=== PATIENT | male | born 1985 | race Caucasian/White ===

== ENCOUNTER 2020-04-21 17:56 | Inpatient (IN) | payer OTHER ==
--- OUTSIDE RECORDS SUMMARY | 2020-04-21 18:03 | XMS ---
:1985 [facility] Providers Name Role Phone ED STAFF PHYSICIAN, STAFF Unavailable Unavailable SHAHAB MARTEL Unavailable Unavailable DAVID PUTNAM Unavailable Unavailable Re-disclosure Warning The records that you are about to access may contain information from federally- assisted alcohol or drug abuse programs. If such information is present, then the following federally mandated warning applies: This information has been disclosed to you from records protected by federal confidentiality rules (42 CFR part 2). The federal rules prohibit you from making any further disclosure of this information unless further disclosure is expressly permitted by the written consent of the person to whom it pertains or as otherwise permitted by 42 CFR part 2. A general authorization for the release of medical or other information is NOT sufficient for this purpose. The Federal rules restrict any use of the information to criminally investigate or prosecute any alcohol or drug abuse patient.The records that you are about to access may contain highly sensitive health information, the redisclosure of which is protected by Article 27-F of the [facility] Public Health law. If you continue you may haveaccess to information: Regarding HIV / AIDS; Provided by facilities licensed or operated by the [facility] Office of Mental Health; or Provided by the [facility] Office for People With Developmental Disabilities. If such information is present, then the following [facility] mandated warning applies: This information has been disclosed to you from confidential records which are protected by state law. State law prohibits you from making any further disclosure of this information without the specific written consent of the person to whom it pertains, or as otherwise permitted by law. Any unauthorized further disclosure in violation of state law may result in a fine or half-way sentence or both. A general authorization for the release of medical or other information is NOT sufficient authorization for further disclosure. Encounters Encounter Providers Location Date Indications Data Source(s ) Inpatient Attender: DAVID [id number] 02/10/2020 [facility] HER[facility]NDEZ 06:49:00 PM EDT [facility] RAttender: STAFF ED - 02/13/2020 STAFF 12:55:00 PM EDT PHYSICIANAdmitter: DAVID HERNANDEZ RReferrer: DAVDI HERNANDEZ R Patient discharged. Emergency Attender: DAVID HERNANDEZ H 01/11/2020 03:43:0 0 PM [facility] STAFF EDT - 01/13/2020 [facility] PHYSICIANAdmitter: STAFF ED 05:58:00 PM EDT STAFF PHYSICIAN Patient discharged. Emergency Attender: DELONTE, 10/04/2018 REFER BY [facility] EDWARDAdmitter: DELONTE, 04:12:00 PM EDT [facility] REFER BY DOCTOR Insurance Providers Payer name Policy type Policy ID Covered Covered libertarian's Policy P kj / Coverage libertarian ID relationship to [employer] Inf ormation type urrutia SELF PAY SP INSURANCE O Problems, Conditions, and Diagnoses Code Display Name Description Problem Type Effective Data Sour ce(s) Dates F13.10 Sedative, hypnotic SEDATIVE, HYPNOTIC Diagnosis 0 [place] or anxiolytic OR ANXIOLYTIC 12:55:00 PM Medical Center abuse, ABUSE, EDT uncomplicated UNCOMPLICATED F41.9 Anxiety disorder, ANXIETY DISORDER, Diagnosis 02/13/2020 [facility] unspecified UNSPECIFIED 12:55:[address] [facility] [address] EDT F11.10 Opioid abuse, OPIOID ABUSE, Diagnosis 02/10/2020 [facility] uncomplicated UNCOMPLICATED 06:49:00 PM [facility] EDT 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 01/11/2020 [facility] [conscious (CONSCIOUS 03:43:00 PM Medical Cente r simulation] SIMULATION) EDT Results ID Date Data Source CHMROUTINECCDA.[id number] 02/13/2020 05:40:00 AM EDT [facility] -0400 Name Value Range Interpretation Description Data Sup porting Code Source(s) Document(s ) Magnesium 1.6-2.3 <content [facility] [Mass/volume] styleCode="Tracey Naomi in Serum or d">Magnesium Medical Plasma </content>2.0 Center MG/DL<content styleCode="Clementine lics"> (1.6-2.3 MG/DL)</conten t> ID Date Data Source CHMROUTINECCDA.[id number] 02/12/2020 08:53:00 PM EDT [facility] -0400 Name Value Range Interpretation Description Data Sup porting Code Source(s) Document(s ) Cannabinoids <content [facility] [Presence] in styleCode="Tracey Salgado Urine by Screen d">Cannabinoid Medical method >50 ng/mL s Center </content>NEGA TIVE NG/ML (Reference Range: not available)<br/ > ID Date Data Source [id number] 02/11/2020 12:00:00 AM EDT [facility] Name Value Range Interpretation Code Description Data Francine rce(s) Supporting Document(s ) 2019-nCoV [facility] RNA XXX BIENVENIDO+probe- Imp This lab was ordered by [facility] and reported by [facility]. ID Date Data Source Liver 01/12/2020 05:26:[address] [facility] Profile.[id number] Name Value Range Interpretation Description Data Sup porting Code Source(s) Document(s ) Alanine 7-50 <content [facility] aminotransferase styleCode="Bold"> Jermain hs [Enzymatic Alanine Medical activity/volume] Aminotransferase Center in Serum or Plasma (ALT) </content>8 IU/L<content styleCode="Italic s"> (7-50 IU/L)</content> Bilirubin.total 0.2-1.3 <content [facility] [Mass/volume] in styleCode="Bold"> Jermain hs Serum or Plasma Bilirubin Total Medical </content>0.3 Center MG/DL<content styleCode="Italic s"> (0.2-1.3 MG/DL)</content> Aspartate 17-59 <content [facility] aminotransferase styleCode="Bold"> Jermain hs [Enzymatic Aspartate Medical activity/volume] Aminotransferase Center in Serum or Plasma (AST) </content>19 IU/L<content styleCode="Italic s"> (17-59 IU/L)</content> Alkaline 38-126 <content [facility] phosphatase styleCode="Bold"> Noami [Enzymatic Alkaline Medical activity/volume] Phosphatase (ALP) Cente r in Serum or Plasma </content>79 IU/L<content styleCode="Italic s"> (38-126 IU/L)</content> Albumin 3.5-5.0 <content [facility] [Mass/volume] in styleCode="Bold"> Jermain hs Serum or Plasma Albumin Medical </content>3.8 Center G/DL<content styleCode="Italic s"> (3.5-5.0 G/DL)</content> ID Date Data Source HematologyRou.[id number] 01/12/2020 05:26:00 AM EDT [facility] 0400 Name Value Range Interpretation Description Data Sup porting Code Source(s) Document(s ) Leukocytes 4.4-11.0 <content [facility] [#/volume] in styleCode="Bold Naomi Blood by ">White Blood Medical Automated count Cell Count Center </content>5.48 KCUMM<content styleCode="Ital ics"> (4.4-11.0 KCUMM)</content > Hemoglobin 13.5-17. Below low normal <content [facility] [Mass/volume] in 5 styleCode="Bold Naomi Blood ">Hemoglobin Medical </content>12.1 Center G/DL L<content styleCode="Ital ics"> (13.5-17.5 G/DL)</content> Erythrocytes 4.4-5.9 Below low normal <content [facility] [#/volume] in styleCode="Bold Naomi Blood by ">Red Blood Medical Automated count Cell Count Center </content>4.22 MCUMM L<content styleCode="Ital ics"> (4.4-5.9 MCUMM)</content > Erythrocyte mean 80.0-100 <content [facility] corpuscular .0 styleCode="Bold Naomi volume [Entitic ">Mean Medical volume] by Corpuscular Center Automated count Volume </content>86.3 FL<content styleCode="Ital ics"> (80.0-100.0 FL)</content> Hematocrit 41.0-53. Below low normal <content [facility] [Volume 0 styleCode="Bold Naomi Fraction] of ">Hematocrit Medical Blood by </content>36.4 Center Automated count % L<content styleCode="Ital ics"> (41.0-53.0 %)</content> Erythrocyte 11.5-14. <content [facility] distribution 5 styleCode="Bold Naomi width [Ratio] by ">Red Cell Medical Automated count Distribution Center Width </content>13.7 %<content styleCode="Ital ics"> (11.5-14.5 %)</content> Erythrocyte mean 32.0-37. <content [facility] corpuscular 0 styleCode="Bold Naomi hemoglobin ">Mean Corpus. Medical concentration Hgb Center [Mass/volume] by Concentration Automated count (MCHC) </content>33.2 G/DL<content styleCode="Ital ics"> (32.0-37.0 G/DL)</content> Erythrocyte mean 26.0-34. <content [facility] corpuscular 0 styleCode="Bold Naomi hemoglobin ">Mean Medical [Entitic mass] Corposcular Center by Automated Hemoglobin count </content>28.7 PG<content styleCode="Ital ics"> (26.0-34.0 PG)</content> UNK 0.0 <content Saint styleCode="Bold Naomi ">Nucleated Red Medical Blood Cell Center Count </content>0.00 KCUMM<content styleCode="Ital ics"> (0.0 KCUMM)</content > Platelets 130-400 <content Saint [#/volume] in styleCode="Bold Naomi Blood by ">Platelet Medical Automated count Count Center </content>169 KCUMM<content styleCode="Ital ics"> (130-400 KCUMM)</content > Platelet mean 8.0-11.0 <content Saint volume [Entitic styleCode="Bold Naomi volume] in Blood ">Mean Platelet Medical by Automated Volume Center count </content>10.8 FL<content styleCode="Ital ics"> (8.0-11.0 FL)</content> UNK 0 <content Saint styleCode="Bold Naomi ">Nucleated Red Medical Blood Cell Center </content>0.0 /100<content styleCode="Ital ics"> (0 /100)</content> ID Date Data Source GFR(Creatinine).[id number] 01/12/2020 05:26:00 AM EDT [facility] 0-0400 Name Value Range Interpretation Code Description Data Francine rce(s) Supporting Document(s ) UNK > 60 <content [facility] styleCode="Bold"> Medical Cent er EGFR </content>118 GFR<content styleCode="Italic s"> (> 60 GFR)</content> ID Date Data Source CHELADA.[id number] 01/12/2020 05:26:00 AM EDT [facility] -0400 Name Value Range Interpretation Description Data Sup porting Code Source(s) Document(s ) UNK >= 1.0 <content [facility] styleCode="Tracey Naomi d">AG Ratio Medical </content>1.4 Center <content styleCode="Clementine lics"> (>= 1.0 )</content> Phosphate 2.5-4.5 <content [facility] [Mass/volume] styleCode="Tracey Naomi in Serum or d">Phosphorus Medical Plasma </content>4.3 Center MG/DL<content styleCode="Clementine lics"> (2.5-4.5 MG/DL)</conten t> UNK 2.3-3.5 <content [facility] styleCode="Tracey Naomi d">Globulin Medical </content>2.7 Center G/DL<content styleCode="Clementine lics"> (2.3-3.5 G/DL)</content > Magnesium 1.6-2.3 <content [facility] [Mass/volume] styleCode="Tracey Naomi in Serum or d">Magnesium Medical Plasma </content>2.0 Center MG/DL<content styleCode="Clementine lics"> (1.6-2.3 MG/DL)</conten t> Protein 6.3-8.2 <content [facility] [Mass/volume] styleCode="Tracey Naomi in Serum or d">Total Medical Plasma Protein Center </content>6.5 G/DL<content styleCode="Clementine lics"> (6.3-8.2 G/DL)</content > ID Date Data Source [facility].[id number] 01/12/2020 05:26:00 AM EDT [facility] Name Value Range Interpretation Description Data Sup porting Code Source(s) Document(s ) Sodium 137-145 <content Saint [Moles/volume] in styleCode="Bold"> [facility] Serum or Plasma Sodium Medical </content>138 Center MEQ/L<content styleCode="Italic s"> (137-145 MEQ/L)</content> Potassium 3.5-5.3 <content [facility] [Moles/volume] in styleCode="Bold"> [facility] Serum or Plasma Potassium Medical </content>3.5 Center MEQ/L<content styleCode="Italic s"> (3.5-5.3 MEQ/L)</content> UNK 9-20 <content Saint styleCode="Bold"> Naomi BUN </content>15 Medical MG/DL<content Center styleCode="Italic s"> (9-20 MG/DL)</content> Chloride 98-107 <content [facility] [Moles/volume] in styleCode="Bold"> [facility] Serum or Plasma Chloride Medical </content>105 Center MEQ/L<content styleCode="Italic s"> (98-107 MEQ/L)</content> Carbon dioxide, 22-30 <content [facility] total styleCode="Bold"> Naomi [Moles/volume] in Carbon Dioxide Medical Serum or Plasma </content>27 Center MEQ/L<content styleCode="Italic s"> (22-30 MEQ/L)</content> Glucose 74-106 <content [facility] [Mass/volume] in styleCode="Bold"> Jermain hs Serum or Plasma Glucose Medical </content>105 Center MG/DL<content styleCode="Italic s"> (74-106 MG/DL)</content> Calcium 8.4-10. <content [facility] [Mass/volume] in 2 styleCode="Bold"> Jermain hs Serum or Plasma Calcium Medical </content>9.5 Center MG/DL<content styleCode="Italic s"> (8.4-10.2 MG/DL)</content> Creatinine 0.5-1.3 <content [facility] [Mass/volume] in styleCode="Bold"> Jermain hs Serum or Plasma Creatinine Medical </content>0.8 Center MG/DL<content styleCode="Italic s"> (0.5-1.3 MG/DL)</content> UNK > 60 <content [facility] styleCode="Bold"> Naomi EGFR Medical </content>118 Center GFR<content styleCode="Italic s"> (> 60 GFR)</content> Alkaline 38-126 <content [facility] phosphatase styleCode="Bold"> Naomi [Enzymatic Alkaline Medical activity/volume] Phosphatase (ALP) Cente r in Serum or Plasma </content>79 IU/L<content styleCode="Italic s"> (38-126 IU/L)</content> Alanine 7-50 <content [facility] aminotransferase styleCode="Bold"> Jermain hs [Enzymatic Alanine Medical activity/volume] Aminotransferase Center in Serum or Plasma (ALT) </content>8 IU/L<content styleCode="Italic s"> (7-50 IU/L)</content> Aspartate 17-59 <content [facility] aminotransferase styleCode="Bold"> Jermain hs [Enzymatic Aspartate Medical activity/volume] Aminotransferase Center in Serum or Plasma (AST) </content>19 IU/L<content styleCode="Italic s"> (17-59 IU/L)</content> Albumin 3.5-5.0 <content [facility] [Mass/volume] in styleCode="Bold"> Jermain hs Serum or Plasma Albumin Medical </content>3.8 Center G/DL<content styleCode="Italic s"> (3.5-5.0 G/DL)</content> Bilirubin.total 0.2-1.3 <content [facility] [Mass/volume] in styleCode="Bold"> Jermain hs Serum or Plasma Bilirubin Total Medical </content>0.3 Center MG/DL<content styleCode="Italic s"> (0.2-1.3 MG/DL)</content> ID Date Data Source [id number] 01/11/2020 06:45:00 PM EDT [facility] Name Value Range Interpretation Code Description Data Francine rce(s) Supporting Document(s ) COV2 [facility] This lab was ordered by [facility] and reported by [facility]. ID Date Data Source Urinalysis.[id number] 01/11/2020 04:45:00 PM EDT [facility] 0 Name Value Range Interpretation Description Data Sup porting Code Source(s) Document(s ) Color of Urine YELLOW <content Saint styleCode="Tracey Naomi d">Color, Medical Urine Center </content>YELL OW <content styleCode="Clementine lics"> (YELLOW )</content> Ketones NEGATIVE <content [facility] [Mass/volume] styleCode="Tracey Irahetas in Urine by d">Urine Medical Test strip Ketone Center </content>NEGA TIVE MG/DL<content styleCode="Clementine lics"> (NEGATIVE MG/DL)</conten t> Glucose NEGATIVE <content [facility] [Mass/volume] styleCode="Tracey Irahetas in Urine by d">Urine Medical Test strip Glucose Center </content>NEGA TIVE MG/DL<content styleCode="Clementine lics"> (NEGATIVE MG/DL)</conten t> UNK NEGATIVE <content Saint styleCode="Tracey Naomi d">Urine Medical Bilirubin Center </content>NEGA TIVE <content styleCode="Clementine lics"> (NEGATIVE )</content> UNK CLEAR <content Saint styleCode="Tracey Naomi d">Urine Medical Clarity Center </content>JUDSON R <content styleCode="Clementine lics"> (CLEAR )</content> Specific 1.015-1.02 Above high <content Saint gravity of 5 normal styleCode="Tracey Irahetas Urine by Test d">Urine Medical strip Specific Center [place] </content>>= 1.030 H<content styleCode="Clementine lics"> (1.015-1.025 )</content> Hemoglobin NEGATIVE <content [facility] [Presence] in styleCode="Tracey Salgado Urine by Test d">Urine Blood Medical strip </content>NEGA Center TIVE <content styleCode="Clementine lics"> (NEGATIVE )</content> pH of Urine by 4.5-8.0 <content Saint Test strip styleCode="Tracey Irahetas d">Urine pH Medical </content>5.5 Center <content styleCode="Clementine lics"> (4.5-8.0 )</content> Nitrite NEGATIVE <content [facility] [Presence] in styleCode="Tracey Irahetas Urine by Test d">Urine Medical strip Nitrite Center </content>NEGA TIVE <content styleCode="Clementine lics"> (NEGATIVE )</content> Leukocyte NEGATIVE <content Saint esterase styleCode="Tracey Naomi [Presence] in d">Urine Medical Urine by Test Leukocyte Center strip </content>NEGA TIVE <content styleCode="Clementine lics"> (NEGATIVE )</content> Urobilinogen 0.2-1.0 <content Saint [Units/volume] styleCode="Tracey Irahetas in Urine by d">Urine Medical Test strip Urobilinogen Center </content>0.2 MG/DL<content styleCode="Clementine lics"> (0.2-1.0 MG/DL)</conten t> Protein NEGATIVE <content [facility] [Mass/volume] styleCode="Tracey Irahetas in Urine by d">Urine Medical Test strip Protein Center </content>NEGA TIVE MG/DL<content styleCode="Clementine lics"> (NEGATIVE MG/DL)</conten t> ID Date Data Source CHMROUTINECCDA.[id number] 01/11/2020 04:45:00 PM EDT [facility] -0400 Name Value Range Interpretation Description Data Sup porting Code Source(s) Document(s ) Cannabinoids <content [facility] [Presence] in styleCode="Tracey Salgado Urine by Screen d">Cannabinoid Medical method >50 ng/mL s Center </content>PRES UMPTIVE POSITIVE NG/ML (Reference Range: not available)<br/ > ID Date Data Source Liver 01/11/2020 04:44:[address] [facility] Profile.[id number] Name Value Range Interpretation Description Data Sup porting Code Source(s) Document(s ) Aspartate 17-59 <content [facility] aminotransferase styleCode="Bold"> Jermain hs [Enzymatic Aspartate Medical activity/volume] Aminotransferase Center in Serum or Plasma (AST) </content>20 IU/L<content styleCode="Italic s"> (17-59 IU/L)</content> Alanine 7-50 <content [facility] aminotransferase styleCode="Bold"> Jermain hs [Enzymatic Alanine Medical activity/volume] Aminotransferase Center in Serum or Plasma (ALT) </content>9 IU/L<content styleCode="Italic s"> (7-50 IU/L)</content> UNK 0.0-0.3 <content Saint styleCode="Bold"> Naomi Bilirubin, Direct Medical </content>< 0.2 Center MG/DL<content styleCode="Italic s"> (0.0-0.3 MG/DL)</content> Bilirubin.total 0.2-1.3 <content [facility] [Mass/volume] in styleCode="Bold"> Jermain hs Serum or Plasma Bilirubin Total Medical </content>0.2 Center MG/DL<content styleCode="Italic s"> (0.2-1.3 MG/DL)</content> Alkaline 38-126 <content [facility] phosphatase styleCode="Bold"> Naomi [Enzymatic Alkaline Medical activity/volume] Phosphatase (ALP) Cente r in Serum or Plasma </content>73 IU/L<content styleCode="Italic s"> (38-126 IU/L)</content> Albumin 3.5-5.0 <content [facility] [Mass/volume] in styleCode="Bold"> Jermain hs Serum or Plasma Albumin Medical </content>4.1 Center G/DL<content styleCode="Italic s"> (3.5-5.0 G/DL)</content> ID Date Data Source HematologyRou.[id number] 01/11/2020 04:44:00 PM EDT [facility] 0400 Name Value Range Interpretation Description Data Sup porting Code Source(s) Document(s ) Erythrocytes 4.4-5.9 Below low normal <content [facility] [#/volume] in styleCode="Bold Naomi Blood by ">Red Blood Medical Automated count Cell Count Center </content>4.27 MCUMM L<content styleCode="Ital ics"> (4.4-5.9 MCUMM)</content > Leukocytes 4.4-11.0 <content [facility] [#/volume] in styleCode="Bold Naomi Blood by ">White Blood Medical Automated count Cell Count Center </content>6.11 KCUMM<content styleCode="Ital ics"> (4.4-11.0 KCUMM)</content > Erythrocyte mean 26.0-34. <content [facility] corpuscular 0 styleCode="Bold Naomi hemoglobin ">Mean Medical [Entitic mass] Corposcular Center by Automated Hemoglobin count </content>28.8 PG<content styleCode="Ital ics"> (26.0-34.0 PG)</content> Hematocrit 41.0-53. Below low normal <content [facility] [Volume 0 styleCode="Bold Naomi Fraction] of ">Hematocrit Medical Blood by </content>36.9 Center Automated count % L<content styleCode="Ital ics"> (41.0-53.0 %)</content> Erythrocyte mean 80.0-100 <content [facility] corpuscular .0 styleCode="Bold Naomi volume [Entitic ">Mean Medical volume] by Corpuscular Center Automated count Volume </content>86.4 FL<content styleCode="Ital ics"> (80.0-100.0 FL)</content> Hemoglobin 13.5-17. Below low normal <content Saint [Mass/volume] in 5 styleCode="Bold Naomi Blood ">Hemoglobin Medical </content>12.3 Center G/DL L<content styleCode="Ital ics"> (13.5-17.5 G/DL)</content> Platelets 130-400 <content Saint [#/volume] in styleCode="Bold Naomi Blood by ">Platelet Medical Automated count Count Center </content>185 KCUMM<content styleCode="Ital ics"> (130-400 KCUMM)</content > Platelet mean 8.0-11.0 <content [facility] volume [Entitic styleCode="Bold Naomi volume] in Blood ">Mean Platelet Medical by Automated Volume Center count </content>10.4 FL<content styleCode="Ital ics"> (8.0-11.0 FL)</content> Erythrocyte mean 32.0-37. <content [facility] corpuscular 0 styleCode="Bold Naomi hemoglobin ">Mean Corpus. Medical concentration Hgb Center [Mass/volume] by Concentration Automated count (MCHC) </content>33.3 G/DL<content styleCode="Ital ics"> (32.0-37.0 G/DL)</content> Erythrocyte 11.5-14. <content [facility] distribution 5 styleCode="Bold Naomi width [Ratio] by ">Red Cell Medical Automated count Distribution Center Width </content>13.9 %<content styleCode="Ital ics"> (11.5-14.5 %)</content> UNK 0 <content Saint styleCode="Bold Naomi ">Nucleated Red Medical Blood Cell Center </content>0.0 /100<content styleCode="Ital ics"> (0 /100)</content> UNK 0.0 <content Saint styleCode="Bold Naomi ">Nucleated Red Medical Blood Cell Center Count </content>0.00 KCUMM<content styleCode="Ital ics"> (0.0 KCUMM)</content > ID Date Data Source GFR(Creatinine).[id number] 01/11/2020 04:44:00 PM EDT [facility] 0-0400 Name Value Range Interpretation Code Description Data Francine rce(s) Supporting Document(s ) UNK > 60 <content Saint [facility] styleCode="Bold"> Medical Cent er EGFR </content>103 GFR<content styleCode="Italic s"> (> 60 GFR)</content> ID Date Data Source BMP.[id number] 01/11/2020 04:44:00 PM EDT [facility] Name Value Range Interpretation Description Data Sup porting Code Source(s) Document(s ) Potassium 3.5-5.3 <content Saint [Moles/volume] in styleCode="Bold"> [facility] Serum or Plasma Potassium Medical </content>4.0 Center MEQ/L<content styleCode="Italic s"> (3.5-5.3 MEQ/L)</content> Sodium 137-145 <content Saint [Moles/volume] in styleCode="Bold"> [facility] Serum or Plasma Sodium Medical </content>139 Center MEQ/L<content styleCode="Italic s"> (137-145 MEQ/L)</content> Chloride 98-107 <content Saint [Moles/volume] in styleCode="Bold"> [facility] Serum or Plasma Chloride Medical </content>103 Center MEQ/L<content styleCode="Italic s"> (98-107 MEQ/L)</content> Carbon dioxide, 22-30 <content Saint total styleCode="Bold"> Naomi [Moles/volume] in Carbon Dioxide Medical Serum or Plasma </content>28 Center MEQ/L<content styleCode="Italic s"> (22-30 MEQ/L)</content> Creatinine 0.5-1.3 <content [facility] [Mass/volume] in styleCode="Bold"> Jermain hs Serum or Plasma Creatinine Medical </content>0.9 Center MG/DL<content styleCode="Italic s"> (0.5-1.3 MG/DL)</content> UNK 9-20 <content Saint styleCode="Bold"> Naomi BUN </content>14 Medical MG/DL<content Center styleCode="Italic s"> (9-20 MG/DL)</content> UNK > 60 <content [facility] styleCode="Bold"> Naomi EGFR Medical </content>103 Center GFR<content styleCode="Italic s"> (> 60 GFR)</content> Glucose 74-106 Above high <content Saint [Mass/volume] in normal styleCode="Bold"> Jermain hs Serum or Plasma Glucose Medical </content>116 Center MG/DL H<content styleCode="Italic s"> (74-106 MG/DL)</content> Calcium 8.4-10. <content [facility] [Mass/volume] in 2 styleCode="Bold"> Jermain hs Serum or Plasma Calcium Medical </content>9.2 Center MG/DL<content styleCode="Italic s"> (8.4-10.2 MG/DL)</content> Aspartate 17-59 <content [facility] aminotransferase styleCode="Bold"> Jermain hs [Enzymatic Aspartate Medical activity/volume] Aminotransferase Center in Serum or Plasma (AST) </content>20 IU/L<content styleCode="Italic s"> (17-59 IU/L)</content> Alanine 7-50 <content [facility] aminotransferase styleCode="Bold"> Jermain hs [Enzymatic Alanine Medical activity/volume] Aminotransferase Center in Serum or Plasma (ALT) </content>9 IU/L<content styleCode="Italic s"> (7-50 IU/L)</content> Alkaline 38-126 <content Saint phosphatase styleCode="Bold"> Naomi [Enzymatic Alkaline Medical activity/volume] Phosphatase (ALP) Cente r in Serum or Plasma </content>73 IU/L<content styleCode="Italic s"> (38-126 IU/L)</content> Bilirubin.total 0.2-1.3 <content [facility] [Mass/volume] in styleCode="Bold"> Jermain hs Serum or Plasma Bilirubin Total Medical </content>0.2 Center MG/DL<content styleCode="Italic s"> (0.2-1.3 MG/DL)</content> Albumin 3.5-5.0 <content [facility] [Mass/volume] in styleCode="Bold"> Jermain hs Serum or Plasma Albumin Medical </content>4.1 Center G/DL<content styleCode="Italic s"> (3.5-5.0 G/DL)</content> Procedure Social History Code Duration Value Status Description Data Source(s ) Smoking 02/11/2020 Denies Ever completed Denies Ever Smoked [facility] 03:05:00 AM EDT Smoked Medical C enter Smoking 02/10/2020 Denies Ever completed Denies Ever Smoked [facility] 10:30:00 PM EDT Smoked Medical C enter Smoking 02/10/2020 Denies Ever completed Denies Ever Smoked [facility] 09:18:00 PM EDT Smoked Medical C enter Smoking 01/11/2020 Denies Ever completed Denies Ever Smoked [facility] 10:47:00 PM EDT Smoked Medical C enter Vital Signs ID Date Data Source UNK Name Value Range Interpretation Code Description Data Source(s) Body temperature 36.579358 36.792255 [facility] Respiratory rate 20 /min 20 /min [facility] Heart rate 58 /min 58 /min [facility] Diastolic blood 59 mm[Hg] 59 mm[Hg] [facility] Systolic blood 97 mm[Hg] 97 mm[Hg] [facility] Body temperature 36.352485 36.487100 [facility] Respiratory rate 20 /min 20 /min [facility] Heart rate 68 /min 68 /min [facility] Diastolic blood 63 mm[Hg] 63 mm[Hg] [facility] [place] Systolic blood 89 mm[Hg] 89 mm[Hg] [facility] Body temperature 36.931733 36.925679 [facility] Respiratory rate 20 /min 20 /min [facility] Heart rate 62 /min 62 /min [facility] Diastolic blood 60 mm[Hg] 60 mm[Hg] [facility] Systolic blood 100 mm[Hg] 100 mm[Hg] [facility] [place] Body temperature 36.163966 36.059905 [facility] Respiratory rate 20 /min 20 /min [facility] Heart rate 68 /min 68 /min [facility] Diastolic blood 68 mm[Hg] 68 mm[Hg] [facility] Systolic blood 103 mm[Hg] 103 mm[Hg] [facility] Body temperature 36.013379 36.003577 [facility] Respiratory rate 19 /min 19 /min [facility] Heart rate 69 /min 69 /min [facility] Diastolic blood 79 mm[Hg] 79 mm[Hg] [facility] Systolic blood 119 mm[Hg] 119 mm[Hg] [facility] Body temperature 36.349812 36.585804 [facility] Respiratory rate 20 /min 20 /min [facility] Heart rate 68 /min 68 /min [facility] Diastolic blood 64 mm[Hg] 64 mm[Hg] [facility] Systolic blood 118 mm[Hg] 118 mm[Hg] [facility] Body temperature 36.129698 36.412217 [facility] Respiratory rate 20 /min 20 /min [facility] Heart rate 64 /min 64 /min [facility] Diastolic blood 76 mm[Hg] 76 mm[Hg] [facility] Systolic blood 119 mm[Hg] 119 mm[Hg] [facility] Body weight 81.346750 kg 81.419736 kg [facility] Body height 187.282917 187.531973 cm [facility] [place] Body mass index 23.10 kg/m2 23.10 kg/m2 [facility] (BMI) [Ratio] Medical [address] Body temperature 36.147884 36.133383 [facility] Respiratory rate 18 /min 18 /min [facility] Heart rate 66 /min 66 /min [facility] Diastolic blood 83 mm[Hg] 83 mm[Hg] [facility] Systolic blood 133 mm[Hg] 133 mm[Hg] [facility] Oxygen saturation 100 % 100 % [facility] in Arterial blood [facility] by Pulse oximetry Body temperature 36.987364 36.147656 [facility] Respiratory rate 17 /min 17 /min [facility] Heart rate 73 /min 73 /min [facility] Diastolic blood 92 mm[Hg] 92 mm[Hg] [facility] Systolic blood 124 mm[Hg] 124 mm[Hg] [facility] Oxygen saturation 97 % 97 % [facility] J [facility]ph[facility] in Arterial blood [facility] by Pulse oximetry Body temperature 36.089249 36.557167 [facility] Respiratory rate 19 /min 19 /min [facility] Heart rate 92 /min 92 /min [facility] Diastolic blood 82 mm[Hg] 82 mm[Hg] [facility] pressure Medical Center Systolic blood 136 mm[Hg] 136 mm[Hg] [facility] Body temperature 36.620453 36.056177 [facility] Respiratory rate 20 /min 20 /min [facility] Heart rate 53 /min 53 /min [facility] Diastolic blood 84 mm[Hg] 84 mm[Hg] [facility] pressure [facility] Center Systolic blood 120 mm[Hg] 120 mm[Hg] [facility] Body temperature 36.651062 36.764126 [facility] Respiratory rate 20 /min 20 /min [facility] Heart rate 88 /min 88 /min [facility] Diastolic blood 65 mm[Hg] 65 mm[Hg] [facility] Systolic blood 108 mm[Hg] 108 mm[Hg] [facility] Heart rate 88 /min 88 /min [facility] Diastolic blood 78 mm[Hg] 78 mm[Hg] [facility] Systolic blood 104 mm[Hg] 104 mm[Hg] [facility] Heart rate 67 /min 67 /min [facility] Diastolic blood 76 mm[Hg] 76 mm[Hg] [facility] pressure [facility] Center Systolic blood 114 mm[Hg] 114 mm[Hg] [facility] Body temperature 36.887132 36.014821 [facility] Respiratory rate 20 /min 20 /min [facility] Heart rate 64 /min 64 /min [facility] Diastolic blood 73 mm[Hg] 73 mm[Hg] [facility] Systolic blood 108 mm[Hg] 108 mm[Hg] [facility] Body temperature 36.190885 36.793795 [facility] Respiratory rate 20 /min 20 /min [facility] Heart rate 61 /min 61 /min [facility] Diastolic blood 75 mm[Hg] 75 mm[Hg] [facility] Systolic blood 108 mm[Hg] 108 mm[Hg] [facility] Body temperature 36.990574 36.313819 [facility] Respiratory rate 20 /min 20 /min [facility] Heart rate 73 /min 73 /min [facility] Diastolic blood 70 mm[Hg] 70 mm[Hg] [facility] pressure Medical Center Systolic blood 111 mm[Hg] 111 mm[Hg] [facility] Oxygen saturation 98 % 98 % [facility] in Arterial blood [facility] by Pulse oximetry Body temperature 36.344906 36.837154 [facility] Respiratory rate 16 /min 16 /min [facility] Heart rate 81 /min 81 /min [facility] Diastolic blood 81 mm[Hg] 81 mm[Hg] [facility] Systolic blood 129 mm[Hg] 129 mm[Hg] [facility] Body weight 82.507083 kg 82.125049 kg [facility] [place] Body height 187.349452 187.483313 cm [facility] [place] Body mass index 23.35 kg/m2 23.35 kg/m2 [facility] osep (BMI) [Ratio] [facility] [facility] Body temperature 36.463737 36.246750 [facility] Respiratory rate 20 /min 20 /min [facility] Heart rate 85 /min 85 /min [facility] Diastolic blood 85 mm[Hg] 85 mm[Hg] [facility] Systolic blood 130 mm[Hg] 130 mm[Hg] [facility] Oxygen saturation 98 % 98 % [facility] J [facility]phs in Arterial blood [facility] by Pulse oximetry Body temperature 36.356508 36.974198 [facility] Respiratory rate 18 /min 18 /min [facility] Heart rate 90 /min 90 /min [facility] Diastolic blood 75 mm[Hg] 75 mm[Hg] [facility] Systolic blood 125 mm[Hg] 125 mm[Hg] [facility]
[2020-04-21] MEDS ORDERED: NICOTINE POLACRILEX 2 MG GUM BUC PRN (21:12)
[2020-04-21] MEDS ORDERED: MAGNESIUM CITRATE 300 ML BOTTLE PO PRN (21:12)
[2020-04-21] MEDS ORDERED: IBUPROFEN 400 MG TABLET (FP) PO PRN (21:12)
[2020-04-21] MEDS ORDERED: MAGNESIUM HYDROX 2400MG/30ML ORAL SUSPENSION 30 ML CUP PO PRN (21:12)
[2020-04-21] MEDS ORDERED: BISMUTH SUBSALICYLATE 524 MG/30 ML UD PO PRN (21:12)
[2020-04-21] MEDS ORDERED: MAG HYDROX/AL HYDROX/SIMETH 30 ML UNIT-DOSE CUP PO PRN (21:12)
[2020-04-21] MEDS ORDERED: ACETAMINOPHEN 325 MG TABLET (FP) PO PRN ×2 (21:12)
[2020-04-21] MEDS ORDERED: MENTHOL/PHENOL 1 EACH UD MM PRN (21:12)
--- NOTE | 2020-04-21 21:12 | BHS.RME ---
Substance Use & Tx History - Substance Use History Heroin Substance amount: 20 bags Frequency of use: Daily Substance route: Injection (ex: intravenous or skin popping) Date of Last Use: 04/20/20 - Last Treatment Where was last treatment: Detox ([facility] a couple of months ago[facility] Physical/Psych/Mental Status - Behavior General Behavior: Increased activity (restlessness, agitation) Other Behaviors: Mannerisms - Cooperativeness Cooperativeness: Cooperative - Thinking Thought Processes: Tight, Logical Thought content: Future oriented - Physical Health Problems Is patient presently having any pain?: Yes (multiple joints aches) Does patient presently have any injuries (include location): No Does patient currently have a fever: No Is patient : No (male) COWS - Scale Resting Pulse: 0= [place] 80 or Below Sweatin= Chills/Flushing Restless Observation: 1= Difficult to Sit Still Pupil Size: 0= Normal to Room Light Bone or Joint Aches: 2= Severe Diffuse Aches Runny Nose/ Eye Tearin= Runny Nose/Eyes GI Upset > 30mins: 1= Stomach Cramp Tremor Observation: 2= Slight Tremor Visible Yawning Observation: 0= None Anxiety or Irritability: 2=Irritable/Anxious Goose Flesh Skin: 0=Smooth Skin COWS Score: 11
--- NOTE | 2020-04-21 21:15 | HP ---
"COWS - Scale Resting Pulse: 0= [place] 80 or Below Sweatin= Chills/Flushing Restless Observation: 1= Difficult to Sit Still Pupil Size: 0= Normal to Room Light Bone or Joint Aches: 2= Severe Diffuse Aches Runny Nose/ Eye Tearin= Runny Nose/Eyes GI Upset > 30mins: 1= Stomach Cramp Tremor Observation: 2= Slight Tremor Visible Yawning Observation: 0= None Anxiety or Irritability: 2=Irritable/Anxious Goose Flesh Skin: 0=Smooth Skin COWS Score: 11 CIWA Score - Admission Criteria OASAS Guidelines: Admission for Medically Managed Detox: Requires at least one of the followin. CIWA greater than 12 2. Seizures within the past 24 hours 3. Delirium tremens within the past 24 hours 4. Hallucinations within the past 24 hours 5. Acute intervention needed for co occurring medical disorder 6. Acute intervention needed for co occurring psychiatric disorder 7. Severe withdrawal that cannot be handled at a lower level of care (continued vomiting, continued diarrhea, abnormal vital signs) requiring intravenous medication and/or fluids 8. Admitting History and Physical - Admission Chief Complaint: I'm withdrawing History of Present Illness: Patient is 34 y/o male presents to [facility] for heroin detox. Started using heroin since age 27. Currently using 20 bags IV daliy. Last use was yesterday. Was sober until 2018 when he had jaw surgery and was given Percocet, then gradually started using heroin again. Was last in Detox at [place]. Search Terms: jose graves, 1985Search Date: 04/21/2020 21:07:57 PM The Drug Utilization Report below displays all of the controlled substance prescriptions, if any, that your patient has filled in the last twelve months. The information displayed on this report is compiled from pharmacy submissions to the Department, and accurately reflects the information as submitted by the pharmacies. This report was requested by: Montserrat Hutchins | Reference #: [id number] You have not added a STEPHEN number. Keeping your STEPHEN number(s) up to date on the My STEPHEN Numbers page will enable the separation of your prescriptions from others in the search results. Others' Prescriptions Patient Name: Jose GravesBirth Date: 1985 Address: [address] [place] [address] [address] [place], [place] [address]Qqq: Male Rx Written Rx Dispensed Drug Quantity Days Supply Prescriber Name Payment Method Dispenser 02/15/2020 02/15/2020 alprazolam 1 mg tablet 90 30 Tito Carnes MD [id number] Patient Name: Jose GravesBirth Date: 1985 Address: [address] [place] [id number]: Male Rx Written Rx Dispensed Drug Quantity Days Supply Prescriber Name Payment Method Dispenser 01/02/2020 01/02/2020 alprazolam 2 mg tablet 90 30 Francois, Purificacion (Dnp) [facility] 01/02/2020 01/02/2020 oxycodone hcl 20 mg tablet 90 30 Francois, Purificacion (Dnp) [facility] History Source: Patient Limitations to Obtaining History: No Limitations Admission ROS [facility] Allergies/Adverse Reactions: Allergies Allergy/AdvReac Type Severity Reaction Status Date / Time No Known Allergies Allergy Verified 04/21/20 21:03 Exam Limitations: No Limitations - Ebola screening Have you traveled outside of the country in the last 21 days: No Have you had contact with anyone from an Ebola affected area: No Have you been sick,other than usual withdrawal symptoms: No Do you have a fever: No - Review of Systems Constitutional: Chills, Loss of Appetite, Night Sweats EENT: reports: Tearing Respiratory: reports: No Symptoms reported Cardiac: reports: No Symptoms Reported GI: reports: No Symptoms Reported : reports: No Symptoms Reported Musculoskeletal: reports: No Symptoms Reported Integumentary: reports: No Symptoms Reported Neuro: reports: No Symptoms reported, Tremors Endocrine: reports: No Symptoms Reported Hematology: reports: No Symptoms Reported Psychiatric: reports: No Sypmtoms Reported, Agitated, Anxious Other Systems: Reviewed and Negative Patient History - Patient Medical History Hx Anemia: No Hx Asthma: No Hx Chronic Obstructive Pulmonary Disease (COPD): No Hx Cancer: No Hx Cardiac Disorders: No Hx Congestive Heart Failure: No Hx Hypertension: No Hx Hypercholesterolemia: No Hx Pacemaker: No HX Cerebrovascular Accident: No Hx Seizures: No Hx Dementia: No Hx Diabetes: No Hx Gastrointestinal Disorders: No Hx Liver Disease: No Hx Genitourinary Disorders: No Hx Sexually Transmitted Disorders: No - Patient Surgical History Past Surgical History: Yes Hx Neurologic Surgery: No Hx Cataract Extraction: No Hx Cardiac Surgery: No Hx Lung Surgery: No Hx Breast Surgery: No Hx Breast Biopsy: No Hx Abdominal Surgery: No Hx Appendectomy: No Hx Cholecystectomy: No Hx Genitourinary Surgery: No Hx Section: No (male) Hx Orthopedic Surgery: No Hx Hysterectomy: No (male) Other Surgical History: jaw surgery Anesthesia Reaction: No - PPD History Previous Implant?: Yes Documented Results: Negative w/o proof Implanted On [facility] Admission?: No PPD to be Administered?: Yes - Reproductive History Patient is a Female of Child Bearing Age (11 -55 yrs old): No Patient : No - Smoking Cessation Smoking history: Current every day smoker Aproximately how many cigarettes per day: 10 Initiated information on smoking cessation: Yes 'Breaking Loose' booklet given: 04/21/20 - Substances abused Heroin Substance route: Injection Frequency: Daily Amount used: 20 bags Age of first use: 27 Date of last use: 04/20/20 Alprazolam (Xanax) Substance route: Oral Frequency: Daily Amount used: 4mg Age of first use: 27 Date of last use: 03/17/20 Admission Physical Exam [facility] - Physical General Appearance: Yes: No Apparent Distress, Tremorous, Irritable, Anxious HEENTM: Yes: Within Normal Limits Respiratory: Yes: Within Normal Limits Neck: Yes: Within Normal Limits Breast: Yes: Breast Exam Deferred Cardiology: Yes: Within Normal Limits Abdominal: Yes: Within Normal Limits Genitourinary: Yes: Within Normal Limits Back: Yes: Within Normal Limits, Normal Inspection Musculoskeletal: Yes: Joint Stiffness, Muscle Pain Extremities: Yes: Within Normal Limits, Normal Capillary Refill Neurological: Yes: Within Normal Limits, Fully Oriented, Alert Integumentary: Yes: Within Normal Limits, Dry Lymphatic: Yes: Within Normal Limits - Diagnostic (1) Heroin dependence Current Visit: Yes Status: Acute (2) Nicotine dependence Current Visit: Yes Status: Chronic (3) Cannabis abuse Current Visit: Yes Status: Chronic Cleared for Admission [facility] - Detox or Rehab [facility] Level of Care: Medically Managed Detox Regimen/Protocol: Methadone Claeared for Rehab Admission: No Inpatient Rehab Admission - Rehab Decision to Admit Inpatient rehab admission?: No"
[2020-04-21 21:46] VITALS: BMI 22.4
--- OUTSIDE RECORDS SUMMARY | 2020-04-21 22:18 | XMS ---
:1985 Author Organization [facility] Care Team Providers Name Role Phone ED [...] is protected by Article 27-F of the [facility] Public Health law. If you continue you may haveaccess to information: Regarding HIV / AIDS; Provided by facilities licensed or operated by the [facility] Office of Mental Health; or Provided by the [facility] Office for People With Developmental Disabilities. If such information is present, then the following [facility] mandated warning applies: This information has been [...] law may result in a fine or correction sentence or both. A general authorization for the release of medical or other information is NOT sufficient authorization for further disclosure. Encounters Encounter Providers Location Date Indications Data Source(s ) Inpatient Attender: DAVID [id number] 02/10/2020 [facility] 06:49:00 PM EDT [facility] Center RAttender: STAFF ED - 02/13/2020 STAFF 12:55:00 PM EDT PHYSICIANAdmitter: DAVID HERNANDEZ RReferrer: DAVID HERNANDEZ R Patient discharged. Emergency Attender: DAVID HERNANDEZ H 01/11/2020 03:43:0 0 PM [facility] STAFF EDT - 01/13/2020 [facility] PHYSICIANAdmitter: STAFF ED 05:58:00 PM EDT STAFF PHYSICIAN Patient discharged. Emergency Attender: DELONTE, 10/04/2018 REFER BY [facility] EDWARDAdmitter: DELONTE, 04:12:00 PM EDT [facility] REFER BY DOCTOR Insurance Providers Payer name Policy type Policy ID Covered Covered republican's Policy P kj / Coverage republican ID relationship to [place] Inf ormation type ur[place] SELF PAY SP INSURANCE O Problems, Conditions, and Diagnoses Code Display Name Description Problem Type Effective Data Sour ce(s) Dates F13.10 Sedative, hypnotic SEDATIVE, HYPNOTIC Diagnosis 0 [place] or anxiolytic OR ANXIOLYTIC 12:55:00 PM Medical Center abuse, ABUSE, EDT uncomplicated UNCOMPLICATED F41.9 Anxiety disorder, ANXIETY DISORDER, Diagnosis 02/13/2020 [facility] unspecified UNSPECIFIED 12:55:[address] EDT F11.10 Opioid abuse, OPIOID ABUSE, Diagnosis 02/10/2020 [facility] uncomplicated UNCOMPLICATED 06:49:00 PM [facility] Center EDT 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 01/11/2020 [facility] [conscious (CONSCIOUS 03:43:00 PM Medical Cente r simulation] SIMULATION) EDT Results ID Date Data Source CHMROUTINECCDA.[id number] 02/13/2020 05:40:00 AM EDT [facility] -0400 Name Value Range Interpretation Description Data Sup porting Code Source(s) Document(s ) Magnesium 1.6-2.3 <content Saint [Mass/volume] styleCode="Tracey Naomi in Serum or d">Magnesium Medical Plasma </content>2.0 Center MG/DL<content styleCode="Clementine lics"> (1.6-2.3 MG/DL)</conten t> ID Date Data Source CHMROUTINECCDA.[id number] 02/12/2020 08:53:00 PM EDT [facility] -0400 Name Value Range Interpretation Description Data Sup porting Code Source(s) Document(s ) Cannabinoids <content Saint [Presence] in styleCode="Tracey Salgado Urine by Screen d">Cannabinoid Medical method >50 ng/mL s Center </content>NEGA TIVE NG/ML (Reference Range: not available)<br/ > ID Date Data Source [id number] 02/11/2020 12:00:00 AM EDT [facility] Name Value Range Interpretation Code Description Data Francine rce(s) Supporting Document(s ) 2019-nCoV [facility] RNA XXX BIENVENIDO+probe- Imp This lab was ordered by [facility] and reported by [employer]. ID Date Data Source Liver 01/12/2020 05:26:00 AM EDT [facility] Profile.[id number] Name Value Range Interpretation Description Data Sup [...] s"> (3.5-5.0 G/DL)</content> ID Date Data Source HematologyRou.[id number] 01/12/2020 05:26:00 AM EDT [facility] 0400 Name Value Range Interpretation Description [...] ics"> (0 /100)</content> ID Date Data Source GFR(Creatinine).[id number] 01/12/2020 05:26:00 AM EDT [facility] 0-0400 Name Value Range Interpretation Code Description Data Francine rce(s) Supporting Document(s ) UNK > 60 <content [facility] styleCode="Bold"> Medical Cent er EGFR </content>118 GFR<content styleCode="Italic s"> (> 60 GFR)</content> ID Date Data Source CHELADA.[id number] 01/12/2020 05:26:00 AM EDT [facility] -0400 Name Value Range Interpretation Description [...] (6.3-8.2 G/DL)</content > ID Date Data Source [facility].[id number] 01/12/2020 05:26:00 AM EDT [facility] Name Value Range Interpretation Description Data Sup porting Code Source(s) Document(s ) Sodium 137-145 <content Saint [Moles/volume] in styleCode="Bold"> [place] [facility] [place] [place] Serum or Plasma Sodium Medical </content>138 Center MEQ/L<content styleCode="Italic s"> (137-145 MEQ/L)</content> Potassium 3.5-5.3 <content Saint [Moles/volume] in styleCode="Bold"> [facility] [place] [facility] [place] [place] Serum or Plasma Potassium Medical </content>3.5 Center MEQ/L<content styleCode="Italic s"> (3.5-5.3 MEQ/L)</content> UNK 9-20 <content Saint styleCode="Bold"> Naomi BUN </content>15 Medical MG/DL<content Center styleCode="Italic s"> (9-20 MG/DL)</content> Chloride 98-107 <content Saint [Moles/volume] in styleCode="Bold"> [place] Serum or Plasma Chloride Medical </content>105 Center [...] s"> (0.2-1.3 MG/DL)</content> ID Date Data Source [id number] 01/11/2020 06:45:00 PM EDT [facility] Name Value Range Interpretation Code Description Data Francine rce(s) Supporting Document(s ) COV2 [facility] This lab was ordered by [facility] and reported by [facility] - Cheryl. ID Date Data Source Urinalysis.[id number] 01/11/2020 04:45:00 PM EDT [facility] 0 Name Value Range Interpretation Description Data Sup porting Code Source(s) Document(s ) Color of Urine YELLOW <content Saint styleCode="Tracey Namoi d">Color, Medical Urine Center </content>YELL OW <content [...] by Test d">Urine Medical strip Specific Center [place] </content>>= 1.030 H<content styleCode="Clementine lics"> (1.015-1.025 )</content> [...] (NEGATIVE MG/DL)</conten t> ID Date Data Source CHMROUTINECCDA.[id number] 01/11/2020 04:45:00 PM EDT [facility] -0400 Name Value Range Interpretation Description Data Sup porting Code Source(s) Document(s ) Cannabinoids <content [facility] [Presence] in styleCode="Tracey Salgado Urine by Screen d">Cannabinoid Medical method >50 ng/mL s Center </content>PRES UMPTIVE POSITIVE NG/ML (Reference Range: not available)<br/ > ID Date Data Source Liver 01/11/2020 04:44:00 PM EDT [facility] Profile.[id number] Name Value Range Interpretation Description Data Sup [...] s"> (3.5-5.0 G/DL)</content> ID Date Data Source HematologyRou.[id number] 01/11/2020 04:44:00 PM EDT [facility] 0400 Name Value Range Interpretation Description [...] (0.0 KCUMM)</content > ID Date Data Source GFR(Creatinine).[id number] 01/11/2020 04:44:00 PM EDT [facility] 0-0400 Name Value Range Interpretation Code Description Data Francine rce(s) Supporting Document(s ) UNK > 60 <content [facility] styleCode="Bold"> Medical Cent er EGFR </content>103 GFR<content styleCode="Italic s"> (> 60 GFR)</content> ID Date Data Source BMP.[id number] 01/11/2020 04:44:00 PM EDT [facility] Name Value Range Interpretation Description Data Sup porting Code Source(s) Document(s ) Potassium 3.5-5.3 <content Saint [Moles/volume] in styleCode="Bold"> [place] Serum or Plasma Potassium Medical </content>4.0 Center MEQ/L<content styleCode="Italic s"> (3.5-5.3 MEQ/L)</content> Sodium 137-145 <content Saint [Moles/volume] in styleCode="Bold"> [place] Serum or Plasma Sodium Medical </content>139 Center MEQ/L<content styleCode="Italic s"> (137-145 MEQ/L)</content> Chloride 98-107 <content Saint [Moles/volume] in styleCode="Bold"> [place] Serum or Plasma Chloride Medical </content>103 Center [...] Interpretation Code Description Data Source(s) Body temperature 36.202572 36.947432 [facility] Respiratory rate 20 /min 20 /min [facility] Heart rate 58 /min 58 /min [facility] Diastolic blood 59 mm[Hg] 59 mm[Hg] [facility] Systolic blood 97 mm[Hg] 97 mm[Hg] [facility] Body temperature 36.783537 36.701297 [facility] Respiratory rate 20 /min 20 /min [facility] Heart rate 68 /min 68 /min [facility] Diastolic blood 63 mm[Hg] 63 mm[Hg] [facility] [place] Systolic blood 89 mm[Hg] 89 mm[Hg] [facility] Body temperature 36.952702 36.238404 [facility] Respiratory rate 20 /min 20 /min [facility] Heart rate 62 /min 62 /min [facility] Diastolic blood 60 mm[Hg] 60 mm[Hg] [facility] Systolic blood 100 mm[Hg] 100 mm[Hg] [facility] Medical [place] Body temperature 36.969345 36.436071 [facility] Respiratory rate 20 /min 20 /min [facility] Heart rate 68 /min 68 /min [facility] Diastolic blood 68 mm[Hg] 68 mm[Hg] [facility] Systolic blood 103 mm[Hg] 103 mm[Hg] [facility] Body temperature 36.695174 36.384155 [facility] Respiratory rate 19 /min 19 /min [facility] Heart rate 69 /min 69 /min [facility] Diastolic blood 79 mm[Hg] 79 mm[Hg] [facility] Systolic blood 119 mm[Hg] 119 mm[Hg] [facility] Body temperature 36.861087 36.325395 [facility] Respiratory rate 20 /min 20 /min [facility] Heart rate 68 /min 68 /min [facility] Diastolic blood 64 mm[Hg] 64 mm[Hg] [facility] Systolic blood 118 mm[Hg] 118 mm[Hg] [facility] Body temperature 36.904861 36.215122 [facility] Respiratory rate 20 /min 20 /min [facility] Heart rate 64 /min 64 /min [facility] Diastolic blood 76 mm[Hg] 76 mm[Hg] [facility] Systolic blood 119 mm[Hg] 119 mm[Hg] [facility] Body weight 81.709512 kg 81.508381 kg [facility] Body height 187.903674 187.224416 cm [facility] Medical [place] Body mass index 23.10 kg/m2 23.10 kg/m2 [facility] (BMI) [Ratio] [facility] [address] Body temperature 36.629507 36.342860 [facility] Respiratory rate 18 /min 18 /min [facility] Heart rate 66 /min 66 /min [facility] Diastolic blood 83 mm[Hg] 83 mm[Hg] [facility] Systolic blood 133 mm[Hg] 133 mm[Hg] [facility] Oxygen saturation 100 % 100 % [facility] in Arterial blood Medical Center by Pulse oximetry Body temperature 36.722921 36.665397 [facility] Respiratory rate 17 /min 17 /min [facility] Heart rate 73 /min 73 /min [facility] Diastolic blood 92 mm[Hg] 92 mm[Hg] [facility] Center Systolic blood 124 mm[Hg] 124 mm[Hg] [facility] Oxygen saturation 97 % 97 % [facility] in Arterial blood [facility] by Pulse oximetry Body temperature 36.508216 36.472588 [facility] Respiratory rate 19 /min 19 /min [facility] Heart rate 92 /min 92 /min [facility] Diastolic blood 82 mm[Hg] 82 mm[Hg] [facility] pressure Medical Center Systolic blood 136 mm[Hg] 136 mm[Hg] [facility] Body temperature 36.107839 36.454837 [facility] Respiratory rate 20 /min 20 /min [facility] Heart rate 53 /min 53 /min [facility] Diastolic blood 84 mm[Hg] 84 mm[Hg] [facility] pressure Medical Center Systolic blood 120 mm[Hg] 120 mm[Hg] [facility] Body temperature 36.832536 36.954533 [facility] Respiratory rate 20 /min 20 /min [facility] Heart rate 88 /min 88 /min [facility] Diastolic blood 65 mm[Hg] 65 mm[Hg] [facility] Systolic blood 108 mm[Hg] 108 mm[Hg] [facility] Heart rate 88 /min 88 /min [facility] Diastolic blood 78 mm[Hg] 78 mm[Hg] [facility] Systolic blood 104 mm[Hg] 104 mm[Hg] [facility] Heart rate 67 /min 67 /min [facility] Diastolic blood 76 mm[Hg] 76 mm[Hg] [facility] pressure Medical Center Systolic blood 114 mm[Hg] 114 mm[Hg] [facility] Body temperature 36.499864 36.060309 [facility] Respiratory rate 20 /min 20 /min [facility] Heart rate 64 /min 64 /min [facility] Diastolic blood 73 mm[Hg] 73 mm[Hg] [facility] Systolic blood 108 mm[Hg] 108 mm[Hg] [facility] Body temperature 36.289483 36.455011 [facility] Respiratory rate 20 /min 20 /min [facility] Heart rate 61 /min 61 /min [facility] Diastolic blood 75 mm[Hg] 75 mm[Hg] [facility] Systolic blood 108 mm[Hg] 108 mm[Hg] [facility] Body temperature 36.535555 36.787842 [facility] Respiratory rate 20 /min 20 /min [facility] Heart rate 73 /min 73 /min [facility] Diastolic blood 70 mm[Hg] 70 mm[Hg] [facility] pressure Medical Center Systolic blood 111 mm[Hg] 111 mm[Hg] [facility] Oxygen saturation 98 % 98 % [facility] in Arterial blood Medical Center by Pulse oximetry Body temperature 36.387452 36.603049 [facility] Respiratory rate 16 /min 16 /min [facility] Heart rate 81 /min 81 /min [facility] Diastolic blood 81 mm[Hg] 81 mm[Hg] [facility] Center Systolic blood 129 mm[Hg] 129 mm[Hg] [facility] Body weight 82.819436 kg 82.286425 kg [facility] Medical [place] Body height 187.114110 187.379654 cm [facility] Medical [place] Body mass index 23.35 kg/m2 23.35 kg/m2 [facility] osep (BMI) [Ratio] [facility] [address] Body temperature 36.752602 36.505680 [facility] Respiratory rate 20 /min 20 /min [facility] Heart rate 85 /min 85 /min [facility] Diastolic blood 85 mm[Hg] 85 mm[Hg] [facility] Systolic blood 130 mm[Hg] 130 mm[Hg] [facility] Oxygen saturation 98 % 98 % [facility] in Arterial blood Medical Center by Pulse oximetry Body temperature 36.852742 36.344796 [facility] Respiratory rate 18 /min 18 /min [facility] Heart rate 90 /min 90 /min [facility] Diastolic blood 75 mm[Hg] 75 mm[Hg] [facility] Center Systolic blood 125 mm[Hg] 125 mm[Hg] [facility]
[2020-04-21] MEDS ORDERED: METHADONE HCL 10 MG TABLET (FOR DETOX USE ONLY) PO ONE (22:30)
[2020-04-21] MEDS: MELATONIN 5 MG TABLETS PO SCH (23:02)
[2020-04-21] MEDS: hydrOXYzine PAMOATE 25 MG CAPSULE (FP) PO SCH (23:02)
[2020-04-21] MEDS: THIAMINE HCL 100 MG TABLET (FP) PO SCH (23:08)
[2020-04-22] MEDS: hydrOXYzine PAMOATE 25 MG CAPSULE (FP) PO SCH ×5 (07:14→22:03)
--- NOTE | 2020-04-22 08:57 | PN ---
[facility] COWS - Scale Resting Pulse: 0= [place] 80 or Below Sweatin= No chills or Flushing Restless Observation: 1= Difficult to Sit Still Pupil Size: 1= Pupils >than Normal Bone or Joint Aches: 2= Severe Diffuse Aches Runny Nose/ Eye Tearin= Runny Nose/Eyes GI Upset > 30mins: 2= Nausea/Diarrhea Tremor Observation of Outstretched Hands: 2= Slight Tremor Visible Yawning Observation: 1= 1-2x During Session Anxiety or Irritability: 2=Irritable/Anxious Goose Flesh Skin: 0=Smooth Skin COWS Score: 13 [facility] Progress Note (SOAP) Subjective: alert,irritable,anxious,interrupted sleep,tremor,pain in the body and back,nausea,sweating Objective: 04/22/20 11:31 Vital Signs Temperature 97.1 F L 04/22/20 08:55 Pulse Rate 66 04/22/20 08:55 Respiratory Rate 18 04/22/20 08:55 Blood Pressure 126/85 04/22/20 08:55 O2 Sat by Pulse Oximetry (%) 98 04/22/20 06:24 labs pending Assessment: 04/22/20 11:31 withdrawal symptom Plan: continue detox methadone regimen
[2020-04-22] MEDS ORDERED: METHADONE HCL 5 MG TABLET (FOR DETOX USE ONLY) ONE (09:31)
[2020-04-22] MEDS ORDERED: METHADONE HCL 10 MG TABLET (FOR DETOX USE ONLY) ONE (09:31)
[2020-04-22] MEDS: PRENATAL VITAMINS W/ FOLIC ACID TABLET (FP) PO SCH (09:44)
[2020-04-22] MEDS: NICOTINE 7 MG/24 HOURS TOPICAL PATCH TD SCH (09:44)
[2020-04-22] MEDS: diazePAM 5 MG TABLET PO PRN ×4 (09:44→22:43)
[2020-04-22] MEDS: METHOCARBAMOL 500 MG TABLET PO PRN ×3 (09:45→22:44)
[2020-04-22] MEDS: cloNIDine HCL 0.1 MG TABLET PO PRN ×4 (09:45→22:43)
[2020-04-22] MEDS ORDERED: METHADONE (DETOX) 20 MG, METHADONE (DETOX) 5 MG PO ONE (10:00)
--- NOTE | 2020-04-22 10:09 | EKG ---
Test Reason : Blood Pressure : / mmHG Vent. Rate : 055 BPM Atrial Rate : 055 BPM P-R Int : 152 ms QRS Dur : 108 ms QT Int : 422 ms P-R-T Axes : 073 072 059 degrees QTc Int : 403 ms SINUS BRADYCARDIA INCOMPLETE RIGHT BUNDLE BRANCH BLOCK BORDERLINE ECG NO PREVIOUS ECGS AVAILABLE Confirmed by MD Jairo, Jose ([id number]) on 04/22/2020 10:09:42 AM Referred By: Wili Mcgee Confirmed By:Jose Gill MD
[2020-04-22 11:55] LABS: HEMATOCRIT 38.3 % (35.4-49); HEMOGLOBIN 12.7 GM/dL (11.7-16.9); MCH 28.1 pg (25.7-33.7); MCHC 33.1 g/dl (32.0-35.9); MEAN PLT VOLUME 8.5 fl (7.5-11.1); PLATELET COUNT 289 K/MM3 (134-434); WHITE BLOOD COUNT 6.4 K/mm3 (4.0-10.0)
[2020-04-22 12:31] LABS: BILIRUBIN,TOTAL 0.7 mg/dL (0.2-1); BLOOD UREA NITROGEN 8.4 mg/dL (7-18); CALCIUM 9.5 mg/dL (8.5-10.1); CREATININE 0.8 mg/dL (0.55-1.3); TOT PROT 7.6 g/dl (6.4-8.2)
[2020-04-22] MEDS: THIAMINE HCL 100 MG TABLET (FP) PO SCH (22:03)
[2020-04-22] MEDS: MELATONIN 5 MG TABLETS PO SCH (22:03)
[2020-04-22] MEDS: ONDANSETRON *ODT* 4 MG TABLET SL PRN (22:44)
[2020-04-23] MEDS: diazePAM 5 MG TABLET PO PRN ×2 (04:00→07:50)
[2020-04-23] MEDS: cloNIDine HCL 0.1 MG TABLET PO PRN ×2 (04:02→10:06)
[2020-04-23] MEDS: ONDANSETRON *ODT* 4 MG TABLET SL PRN (06:54)
[2020-04-23] MEDS: hydrOXYzine PAMOATE 25 MG CAPSULE (FP) PO SCH ×2 (06:54→10:05)
[2020-04-23] MEDS: METHOCARBAMOL 500 MG TABLET PO PRN (06:54)
[2020-04-23 09:11] VITALS: BP 106/68; PULSE 69; TEMP 98.2
--- NOTE | 2020-04-23 09:42 | PN ---
S COWS - Scale Resting Pulse: 0= [place] 80 or Below Sweatin= No chills or Flushing Restless Observation: 0= Sits Still Pupil Size: 1= Pupils >than Normal Bone or Joint Aches: 2= Severe Diffuse Aches Runny Nose/ Eye Tearin= Nasal Congestion GI Upset > 30mins: 2= Nausea/Diarrhea Tremor Observation of Outstretched Hands: 2= Slight Tremor Visible Yawning Observation: 1= 1-2x During Session Anxiety or Irritability: 2=Irritable/Anxious Goose Flesh Skin: 0=Smooth Skin COWS Score: 11 S Progress Note (SOAP) Subjective: alert,irritable,anxious,interrupted sleep,tremor,aching pain,nausea Objective: 04/23/20 09:41 Vital Signs Temperature 98.2 F 04/23/20 08:40 Pulse Rate 69 04/23/20 08:40 Respiratory Rate 18 04/23/20 08:40 Blood Pressure 106/68 04/23/20 08:40 O2 Sat by Pulse Oximetry (%) 99 04/22/20 20:57 Laboratory Last Values WBC 6.4 K/mm3 (4.0-10.0) 04/22/20 07:00 RBC 4.50 M/mm3 (4.00-5.60) 04/22/20 07:00 Hgb 12.7 GM/dL (11.7-16.9) 04/22/20 07:00 Hct 38.3 % (35.4-49) 04/22/20 07:00 MCV 85.0 fl (80-96) 04/22/20 07:00 MCH 28.1 pg (25.7-33.7) 04/22/20 07:00 MCHC 33.1 g/dl (32.0-35.9) 04/22/20 07:00 RDW 14.0 % (11.9-15.9) 04/22/20 07:00 Plt Count 289 K/MM3 (134-434) 04/22/20 07:00 MPV 8.5 fl (7.5-11.1) 04/22/20 07:00 Sodium 142 mmol/L (136-145) 04/22/20 07:30 Potassium 4.0 mmol/L (3.5-5.1) 04/22/20 07:30 Chloride 106 mmol/L (98-107) 04/22/20 07:30 Carbon Dioxide 31 mmol/L (21-32) 04/22/20 07:30 Anion Gap 5 MMOL/L (8-16) L 04/22/20 07:30 BUN 8.4 mg/dL (7-18) 04/22/20 07:30 Creatinine 0.8 mg/dL (0.55-1.3) 04/22/20 07:30 Est GFR (CKD-EPI)AfAm 135.08 04/22/20 07:30 Est GFR (CKD-EPI)NonAf 116.55 04/22/20 07:30 Random Glucose 84 mg/dL (74-106) 04/22/20 07:30 Calcium 9.5 mg/dL (8.5-10.1) 04/22/20 07:30 Total Bilirubin 0.7 mg/dL (0.2-1) 04/22/20 07:30 AST 9 U/L (15-37) L 04/22/20 07:30 ALT 15 U/L (13-61) 04/22/20 07:30 Alkaline Phosphatase 77 U/L (45-117) 04/22/20 07:30 Total Protein 7.6 g/dl (6.4-8.2) 04/22/20 07:30 Albumin 4.0 g/dl (3.4-5.0) 04/22/20 07:30 Syphilis Serology Non-reactive (NONREACTIVE) 04/21/20 07:30 COVID-19 (BIENVENIDO) Not detected (Not Detected) 04/21/20 22:22 Assessment: 04/23/20 09:41 withdrawal symptom Plan: continue detox methadone and librium regimen
[2020-04-23] MEDS ORDERED: METHADONE HCL 10 MG TABLET (FOR DETOX USE ONLY) PO ONE (10:00)
[2020-04-23] MEDS: PRENATAL VITAMINS W/ FOLIC ACID TABLET (FP) PO SCH (10:06)
[2020-04-23] MEDS: NICOTINE 7 MG/24 HOURS TOPICAL PATCH TD SCH (10:06)
--- NOTE | 2020-04-23 11:37 | DS ---
[facility] Detox Discharge Summary Admission Date: 04/21/20 Discharge Date: 04/23/20 - History Present History: Cannabis Dependence, Opioid Dependence Additional Comments: alert,oriented x3 ambulation on the unit patient could not complete detox,has to leave due to emergency problem in his apartment,left against medical advise, the risks of leaving the hospital explained,patient understood,including seizure,permanent disability including , advise to call 911 if any problem Pertinent Past History: nicotine dependence ivdu - Physical Exam Results Vital Signs: Vital Signs Temperature 98.2 F 04/23/20 08:40 Pulse Rate 69 04/23/20 08:40 Respiratory Rate 18 04/23/20 08:40 Blood Pressure 106/68 04/23/20 08:40 O2 Sat by Pulse Oximetry (%) 99 04/22/20 20:57 Pertinent Admission Physical Exam Findings: withdrawal signs and symptom Laboratory Last Values WBC 6.4 K/mm3 (4.0-10.0) 04/22/20 07:00 RBC 4.50 M/mm3 (4.00-5.60) 04/22/20 07:00 Hgb 12.7 GM/dL (11.7-16.9) 04/22/20 07:00 Hct 38.3 % (35.4-49) 04/22/20 07:00 MCV 85.0 fl (80-96) 04/22/20 07:00 MCH 28.1 pg (25.7-33.7) 04/22/20 07:00 MCHC 33.1 g/dl (32.0-35.9) 04/22/20 07:00 RDW 14.0 % (11.9-15.9) 04/22/20 07:00 Plt Count 289 K/MM3 (134-434) 04/22/20 07:00 MPV 8.5 fl (7.5-11.1) 04/22/20 07:00 Sodium 142 mmol/L (136-145) 04/22/20 07:30 Potassium 4.0 mmol/L (3.5-5.1) 04/22/20 07:30 Chloride 106 mmol/L (98-107) 04/22/20 07:30 Carbon Dioxide 31 mmol/L (21-32) 04/22/20 07:30 Anion Gap 5 MMOL/L (8-16) L 04/22/20 07:30 BUN 8.4 mg/dL (7-18) 04/22/20 07:30 Creatinine 0.8 mg/dL (0.55-1.3) 04/22/20 07:30 Est GFR (CKD-EPI)AfAm 135.08 04/22/20 07:30 Est GFR (CKD-EPI)NonAf 116.55 04/22/20 07:30 Random Glucose 84 mg/dL (74-106) 04/22/20 07:30 Calcium 9.5 mg/dL (8.5-10.1) 04/22/20 07:30 Total Bilirubin 0.7 mg/dL (0.2-1) 04/22/20 07:30 AST 9 U/L (15-37) L 04/22/20 07:30 ALT 15 U/L (13-61) 04/22/20 07:30 Alkaline Phosphatase 77 U/L (45-117) 04/22/20 07:30 Total Protein 7.6 g/dl (6.4-8.2) 04/22/20 07:30 Albumin 4.0 g/dl (3.4-5.0) 04/22/20 07:30 Syphilis Serology Non-reactive (NONREACTIVE) 04/21/20 07:30 COVID-19 (BIENVENIDO) Not detected (Not Detected) 04/21/20 22:22 Vital Signs Temperature 98.2 F 04/23/20 08:40 Pulse Rate 69 04/23/20 08:40 Respiratory Rate 18 04/23/20 08:40 Blood Pressure 106/68 04/23/20 08:40 O2 Sat by Pulse Oximetry (%) 99 04/22/20 20:57 - Medication Discharge Medications: Ambulatory Orders Alprazolam [Xanax] 2 mg PO TID 04/21/20 Quetiapine Fumarate [Seroquel -] 200 mg PO BID 04/21/20 Quetiapine Fumarate [Seroquel -] 400 mg PO HS 04/21/20 - Diagnosis (1) Heroin dependence Status: Acute (2) Cannabis abuse Status: Chronic (3) Nicotine dependence Status: Chronic - AMA Did Patient Leave Against Medical Advice: Yes
--- NOTE | 2020-04-23 11:39 | CONSULT ---
[facility] Psychiatric Consult - Data Date of interview: 04/23/20 Admission source: [facility] Identifying data: Ruling Machine Set Up Operator informed by staff that patient left AMA.
[2020-04-24] MEDS ORDERED: METHADONE (DETOX) 10 MG, METHADONE (DETOX) 5 MG PO ONE (10:00)
[2020-04-25] MEDS ORDERED: METHADONE HCL 10 MG TABLET (FOR DETOX USE ONLY) PO ONE (10:00)
[2020-04-26] MEDS ORDERED: METHADONE HCL 5 MG TABLET (FOR DETOX USE ONLY) PO ONE (06:00)
== END 2020-04-23 11:07 | disposition left against medical advice (07) | DRG 770 ==
LOC: YASAS 17:56 → Y3N 22:12
PROVIDERS: ADMIT Allergy & Immunology; ATTEND Allergy & Immunology
PROC: HZ2ZZZZ Detoxification Services for Substance Abuse Treatment (ICD-10-PCS; principal; 2020-04-21)
DX: F11.23 Opioid dependence with withdrawal (principal); F13.20 Sedative, hypnotic or anxiolytic dependence, uncomplicated; F12.20 Cannabis dependence, uncomplicated; F17.220 Nicotine dependence, chewing tobacco, uncomplicated
CPT/HCPCS: 36415; 80053; 85027; 86780; 93005; 93010; C9803; J0735; Q0162; U0003